=== PATIENT | female | born 1980 | race African-American/Black ===

== ENCOUNTER 2022-01-25 06:33 | Day surgery (SDC) | payer BC, OTHER ==
[2022-01-21 16:11] LABS: Absolute Lymphocytes (CBC) 2.2 K/uL (0.7-4.9); Hematocrit 38.6 % (36.0-45.0); Lymphocytes % 47.2 % (15.3-44.8); RBC Red Blood Cell Count 4.55 M/uL (3.86-4.86)
--- NOTE | 2022-01-21 16:11 | RAD REPORT ---
EXAM DESCRIPTION: RAD - Chest Pa And Lat (2 Views) - 01/21/2022 4:03 pm CLINICAL HISTORY: Pre op COMPARISON: CHEST PA AND LAT 2 VIEW dated 06/02/2014; CHEST SINGLE VIEW dated 06/13/2012; CHEST PA AN D LAT 2 VIEW dated 03/22/2011 FINDINGS: Lines: None. Lungs: No evidence of edema or pneumonia. Pleural: No significant pleural effusions or pneumothorax. Cardiac: The heart size is within normal limits. Bones: No acute fractures. Other: IMPRESSION: No acute cardiopulmonary disease.
[2022-01-21 16:18] LABS: Potassium 4.6 mmol/L (3.5-5.1)
[2022-01-21 17:14] LABS: Blood Morphology Comment NOT SEEN (NOT SEEN); Platelet Estimate ADEQ
[2022-01-25] MEDS ORDERED: Ringers Lactate 1,000 ML IV ONE (07:02)
[2022-01-25] MEDS ORDERED: FENTANYL CITR 100 MCG/2 ML ONE (07:19)
[2022-01-25] MEDS ORDERED: MIDAZOLAM HCL 2 MG/2 ML INJ ONE (07:19)
[2022-01-25] MEDS ORDERED: propofoL 200 MG/20 ML VIAL IV ONE (07:19)
[2022-01-25] MEDS ORDERED: LIDOCAINE 1% MPF 5 ML VIAL ONE (07:19)
[2022-01-25] MEDS ORDERED: BUPIVACAINE 0.5% PF 10 ML VIAL ONE (07:27)
[2022-01-25] MEDS ORDERED: ACETAMINOPHEN 500 MG TAB ONE (07:33)
[2022-01-25] MEDS ORDERED: CELECOXIB 100 MG CAPSULE ONE (07:33)
[2022-01-25] MEDS ORDERED: CEFAZOLIN SODIUM 1 GM/VIAL ONE (07:36)
[2022-01-25] MEDS ORDERED: NS 0.9% VIAL 10 ML ONE (07:55)
[2022-01-25] MEDS ORDERED: KETOROLAC 30 MG/ML INJ ONE (07:59)
[2022-01-25] MEDS ORDERED: dexAMETHasone 10 MG/ML VIAL ONE (07:59)
[2022-01-25] MEDS ORDERED: ONDANSETRON 4 MG/2 ML VIAL ONE ×2 (08:08→08:49)
--- NOTE | 2022-01-25 08:17 | P.BOP ---
Preoperative diagnosis: infected chest wall subQ mass Postoperative diagnosis: same Primary procedure: Excisional biopsy infected chest wall subQ mass 3x3 cm with abscess drain Estimated blood loss: <10cc Specimen: mass, culture Findings: mass with cellulitis/abscw Anesthesia: General Complications: None Transferred to: Recovery Room Condition: Good
[2022-01-25 08:28] VITALS: O2SAT 98
--- NOTE | 2022-01-25 08:44 | DS ---
Diagnosis: Infected chest wall subcutaneous mass with abscess. Procedure: Excisional biopsy of infected subcutaneous mass with abscess drainage. Disposition: Home. Condition: Stable. Activity: As tolerated. No heavy lifting. Plan: The patient advised to come to the office tomorrow. We can explain to her the wet-to-dry dres sing in that situation and then see any other help she might need. She is going to continue with her antibiotics until cultures obtained and then the pain medications required to prescribe. TIA/TOMMY Voice ID: [id number] Report ID: [id number]
--- NOTE | 2022-01-25 08:44 | OP ---
Date of Procedure: 01/25/2022 Surgeon: Jose Conley MD Preoperative Diagnosis: Infected chest wall subcutaneous mass. Postoperative Diagnosis: Infected chest wall subcutaneous mass. Procedure: Excisional biopsy of infected chest wall subcutaneous mass with drainage of an abscess, 3 x 3 cm. Anesthesia: General plus local. Packing: Iodoform quarter of an inch. Complications: None. Specimens: Mass and culture. Estimated Blood Loss: Less than 10 cc. Indication: This is the case of a 41-year-old patient with a chest wall mass for the last few weeks, has been on antibiotics, but despite that, the patient came today with still infected mas s and at this time, she is having also purulent discharge. She wants that excised with benefits, alt ernatives, and risks fully explained, which include, but not limited to infection, bleeding, damage t o adjacent structures, anesthesia complication, recurrence, [place], and even . She also understands this may not relieve any symptoms. She might need more than one surgical intervention. She underst ood, signed a consent. She understands also due to these findings and the previous findings of infec tion, she may have to do wound care with wet-to-dry dressing. 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 The area of concern was marked by me and the patient in the holding ro om. Procedure In Detail: The patient was brought to the operating room, placed in supine position. Anes thesia was done without complication. The chest was prepped and draped in the usual sterile fashion. Local anesthesia was applied followed by a wedge incision of the skin. We noticed the patient to h ave this mass all the way down to subcutaneous tissue deep and then after that also loculations and a bscess away from that area, so the mass was removed. Loculations were explored, opened, cultured, ir rigated. Hemostasis was obtained and then the area was packed with iodoform quarter of an inch. The patient tolerated the procedure well. Sponge count and instrument counts correct. The patient was sent to recovery in stable condition. TIA/MODL Voice ID: [id number] Report ID: [id number]
[2022-01-25 08:48] VITALS: TEMP 97
[2022-01-25 09:05] VITALS: BP 120/69
[2022-01-25] MEDS ORDERED: HYDROCODONE/APAP 7.5/325 MG TAB ONE (09:23)
--- NOTE | 2022-01-25 12:26 | EKG ---
Test Date: 2022-01-21 Test Time: 15:44:37 Roof Technician: ABILIO MEASUREMENT RESULTS: Intervals: Rate: 66 DC: 154 QRSD: 74 QT: 388 QTc: 406 Hewitt: P: 18 DC: 154 QRS: -5 T: 17 INTERPRETIVE STATEMENTS: Normal sinus rhythm Minimal voltage criteria for LVH, may be normal variant Borderline ECG Compared to ECG 06/13/2012 09:53:22 Left ventricular hypertrophy now present Electronically Signed On 01-25-22 12:17:47 CDT by Abhishek Roe
== END 2022-01-25 10:14 | disposition home or self-care (01) ==
LOC: OR 06:33
PROVIDERS: ATTEND Surgery
PROC: 0WB80ZZ Excision of Chest Wall, Open Approach (ICD-10-PCS; principal; 2022-01-25 07:30)
DX: L72.0 Epidermal cyst (principal); I10 Essential (primary) hypertension; Z20.822 Contact with and (suspected) exposure to COVID-19
CPT/HCPCS: 36415; 71046; 80048; 85025; 87070; 87075; 87205; 88304; 93005; J0690; J1100; J2250; J2405; J2704; J3010; J7120; U0003